=== PATIENT | female | born 1995 | race Caucasian/White ===

== ENCOUNTER 2017-07-09 09:37 | Outpatient (CLI) | payer OTHER ==
[2017-07-09 10:56] LABS: HGB - HEMOGLOBIN 11.9 g/dL (12.0-16.0); MEAN CORPUSCULAR HEMOGLOBIN 32.1 pg (27.0-31.0); MEAN CORPUSCULAR HGB CONC 35.9 g/dL (32.0-36.0); MEAN CORPUSCULAR VOLUME 89.4 fL (81.0-99.0); MEAN PLATELET VOLUME 6.2 fL (7.9-10.8); RED BLOOD COUNT 3.69 10^6/uL (4.20-5.40); RED CELL DISTRIBUTION WIDTH 12.3 % (12.0-15.0); WHITE BLOOD COUNT 9.9 x10^3/uL (4.8-10.8)
== END 2017-07-09 09:38 | disposition home or self-care (01) ==
LOC: LAB 09:37
PROVIDERS: ATTEND Registered Nurse
DX: Z34.82 Encounter for supervision of other normal pregnancy, second trimester (principal)
CPT/HCPCS: 36415; 82950; 86850

== ENCOUNTER 2017-09-12 17:06 | Observation (INO) | payer OTHER ==
[2017-09-12 17:48] LABS: BASOPHILS % (AUTO) 0.3 %; EOSINOPHILS % (AUTO) 0.2 %; HCT - HEMATOCRIT 32.6 % (37.0-47.0); HGB - HEMOGLOBIN 11.2 g/dL (12.0-16.0); LYMPHOCYTES # (AUTO) 1.8 10^3/uL (1.5-3.5); LYMPHOCYTES % (AUTO) 20.7 %; MEAN CORPUSCULAR HEMOGLOBIN 29.4 pg (27.0-31.0); MEAN CORPUSCULAR HGB CONC 34.3 g/dL (32.0-36.0); MEAN CORPUSCULAR VOLUME 85.8 fL (81.0-99.0); MEAN PLATELET VOLUME 7.2 fL (7.9-10.8); MONOCYTES # (AUTO) 0.6 10^3/uL (0.0-1.0); MONOCYTES % (AUTO) 7.4 %; NEUTROPHILS # (AUTO) 6.2 10^3/uL (1.5-6.6); NEUTROPHILS % (AUTO) 71.4 %; RED CELL DISTRIBUTION WIDTH 12.3 % (12.0-15.0); UNCORRECTED WHITE BLOOD COUNT 8.7 x10^3/uL; WHITE BLOOD COUNT 8.7 x10^3/uL (4.8-10.8)
[2017-09-12] MEDS ORDERED: BETAMETHASONE 30 MG/5 ML VIAL IM SCH (20:00)
[2017-09-12] MEDS ORDERED: ASPIRIN 325 MG TABLET PO SCH (20:00)
[2017-09-12] MEDS ORDERED: ASPIRIN CHEW 81 MG TABLET ONE (20:40)
--- NOTE | 2017-09-12 21:30 | PROVIDER PROGRESS NOTE ---
Subjective - Prog Note Date Prog Note Date: 09/12/17 Prog Note Time: 21:00 - Subjective Subjective: Eda Evans is a 22-year-old primigravida at 35w 2d who was evaluated by Dontrell Alvarez This afternoon and found to have an elevated blood pressure on 2 occasions in the clinic 160/90 and 168/90. She is no history of chronic hypertension and gestational hypertension was suspect.She had no headaches visual changes or right upper quadrant tenderness. Her baseline blood pressure at 24 weeks was 110/60Her blood pressures have been running normally over the last few weeks with an abrupt rise today. Initially, labor and delivery blood pressures were noted to be near normal 124/76. It was decided to do serial blood pressure measurements that showed a upward trend 147/86 and 138/71. Preeclampsia panel was drawn which was essentially normal. Patient was admitted overnight to begin urine protein collection and continue serial blood pressures measurements. Allergies: No known drug allergies Medications: vitamins with iron Objective - Vital Signs/Intake & Output Vital Signs: Vital Signs x48h Temp Pulse Resp BP BP Pulse Ox 09/12/17 20:49 138/71 H 09/12/17 20:48 147/86 H 09/12/17 19:01 136/70 H 09/12/17 18:45 124/76 09/12/17 18:15 123/71 09/12/17 18:01 86 18 135/73 H 100 09/12/17 17:45 124/78 09/12/17 17:32 18 131/74 H 100 09/12/17 17:16 130/91 H 09/12/17 17:10 98.8 F 103 H 18 147/85 H 99 - Lab Results Fish Bones: 09/12/17 17:35 Other Labs: Lab Results x24hrs 09/12/17 09/12/17 09/12/17 Range/Units 17:35 17:35 17:35 WBC 8.7 (4.8-10.8) x10^3/uL RBC 3.80 L (4.20-5.40) 10^6/uL Hgb 11.2 L (12.0-16.0) g/dL Hct 32.6 L (37.0-47.0) % MCV 85.8 (81.0-99.0) fL MCH 29.4 (27.0-31.0) pg MCHC 34.3 (32.0-36.0) g/dL RDW 12.3 (12.0-15.0) % Plt Count 234 (130-450) 10^3/uL MPV 7.2 L (7.9-10.8) fL Neut # 6.2 (1.5-6.6) 10^3/uL Lymph # 1.8 (1.5-3.5) 10^3/uL [place] # 0.6 (0.0-1.0) 10^3/uL Eos # 0.0 (0.0-0.7) 10^3/uL Baso # 0.0 (0.0-0.1) 10^3/uL Absolute Nucleated RBC 0.00 x10^3/uL Nucleated RBC % 0.0 /100WBC Uric Acid 5.0 (2.6-7.2) mg/dL AST 24 (10-42) IU/L Lactate Dehydrogenase 113 (91-225) IU/L Urine Creatinine mg/dL Ur Total Protein Timed mg/dL Protein/Creatinin Ratio 09/12/ Range/Units 17:20 WBC (4.8-10.8) x10^3/uL RBC (4.20-5.40) 10^6/uL Hgb (12.0-16.0) g/dL Hct (37.0-47.0) % MCV (81.0-99.0) fL MCH (27.0-31.0) pg MCHC (32.0-36.0) g/dL RDW (12.0-15.0) % Plt Count (130-450) 10^3/uL MPV (7.9-10.8) fL Neut # (1.5-6.6) 10^3/uL Lymph # (1.5-3.5) 10^3/uL [place] # (0.0-1.0) 10^3/uL Eos # (0.0-0.7) 10^3/uL Baso # (0.0-0.1) 10^3/uL Absolute Nucleated RBC x10^3/uL Nucleated RBC % /100WBC Uric Acid (2.6-7.2) mg/dL AST (10-42) IU/L Lactate Dehydrogenase (91-225) IU/L Urine Creatinine 44.5 mg/dL Ur Total Protein Timed < 6 mg/dL Protein/Creatinin Ratio Not Reportable Physical Exam - Physical Exam General: positive: No acute distress, Anxious, Alert, Other (Talking on cell phone) HEENT: positive: Atraumatic, EOMI, Dentition normal Neck: positive: Supple w/out meningeal sx, Thyroid normal Cardiac: positive: Regular Rate, Regular Rhythm Resipratory: positive: Clear to ausultation becca Abdomen: positive: Normal Bowel sounds, Other (Nontender No organomegaly) Female : positive: Other (Uterus appropriate size normal resting tone no tenderness fetus in vertex presentation) Extremities: positive: Normal ROM Skin: positive: Warm and dry Neurologic: positive: Alert and Oriented X 3, Normal Speech Assessment/Plan - Assessment/Plan Assessment: Mrs. Evans is a 22-year-old primigravida at 35 weeks gestation who had 2 Hypertensive pressures recorded in our office. Her hospital blood pressures seem higher than her baseline, but not severe. Uncertain if there is a upward trend indicating gestational hypertension or if the office blood pressures were an isolated event. No evidence of preeclampsia by clinical symptoms or lab results. Plan: Continue observation overnight and record serial blood pressure measurements. Blood pressures will be done every 2 hours while awake using standard protocol right arm sitting cuff at heart level, normal size cuff. In addition to automated cuff blood pressures every third blood pressure value will have a recheck by manual technique. Results will be reevaluated in the morning.
--- NOTE | 2017-09-12 21:45 | PROCEDURE REPORT ---
Hospitalist Procedure Note - Procedure Note Procedure Note: Addendum for earlier note Plan includes completion of betamethasone IM series and institution of mini dose aspirin daily
[2017-09-13] MEDS ORDERED: ACETAMINOPHEN 325 MG TABLET PO PRN (04:49)
[2017-09-13] MEDS ORDERED: ACETAMINOPHEN 500 MG TABLET PO PRN ×2 (05:02→05:12)
--- NOTE | 2017-09-13 08:44 | PROVIDER PROGRESS NOTE ---
Subjective - Prog Note Date Prog Note Date: 09/13/17 Prog Note Time: 08:34 - Subjective Pt reports feeling: Improved (Patient sitting in bed. Had a headache early this AM but much improved now. Received tylenol. JARRETT was behind her eyes and in her ears. Good FM. No nausea or vomiting No VB. No other overnight events.) Objective - Vital Signs/Intake & Output Vital Signs: Vital Signs x48h Temp Pulse Resp BP 09/13/17 04:38 126/82 H 09/13/17 02:23 97.9 F 126/76 09/13/17 02:21 76 18 133/75 H Intake & Output: Intake & Output 09/10/17 09/11/17 09/12/17 09/13/17 23:59 23:59 23:59 23:59 Intake Total 1050 740 Output Total 925 975 Balance 125 -235 - Objective General Appearance: positive: No acute distress Eyes Bilateral: positive: Normal inspection Abdomen: positive: Non-tender (Gravid) Neurologic/Psychiatric: positive: Oriented x3 - Lab Results Fish Bones: 09/12/17 17:35 Other Labs: Lab Results x24hrs 09/12/17 09/12/17 09/12/17 Range/Units 17:35 17:35 17:35 WBC 8.7 (4.8-10.8) x10^3/uL RBC 3.80 L (4.20-5.40) 10^6/uL Hgb 11.2 L (12.0-16.0) g/dL Hct 32.6 L (37.0-47.0) % MCV 85.8 (81.0-99.0) fL MCH 29.4 (27.0-31.0) pg MCHC 34.3 (32.0-36.0) g/dL RDW 12.3 (12.0-15.0) % Plt Count 234 (130-450) 10^3/uL MPV 7.2 L (7.9-10.8) fL Neut # 6.2 (1.5-6.6) 10^3/uL Lymph # 1.8 (1.5-3.5) 10^3/uL [place] # 0.6 (0.0-1.0) 10^3/uL Eos # 0.0 (0.0-0.7) 10^3/uL Baso # 0.0 (0.0-0.1) 10^3/uL Absolute Nucleated RBC 0.00 x10^3/uL Nucleated RBC % 0.0 /100WBC Uric Acid 5.0 (2.6-7.2) mg/dL AST 24 (10-42) IU/L Lactate Dehydrogenase 113 (91-225) IU/L Urine Creatinine mg/dL Ur Total Protein Timed mg/dL Protein/Creatinin Ratio 09/12/ Range/Units 17:20 WBC (4.8-10.8) x10^3/uL RBC (4.20-5.40) 10^6/uL Hgb (12.0-16.0) g/dL Hct (37.0-47.0) % MCV (81.0-99.0) fL MCH (27.0-31.0) pg MCHC (32.0-36.0) g/dL RDW (12.0-15.0) % Plt Count (130-450) 10^3/uL MPV (7.9-10.8) fL Neut # (1.5-6.6) 10^3/uL Lymph # (1.5-3.5) 10^3/uL [place] # (0.0-1.0) 10^3/uL Eos # (0.0-0.7) 10^3/uL Baso # (0.0-0.1) 10^3/uL Absolute Nucleated RBC x10^3/uL Nucleated RBC % /100WBC Uric Acid (2.6-7.2) mg/dL AST (10-42) IU/L Lactate Dehydrogenase (91-225) IU/L Urine Creatinine 44.5 mg/dL Ur Total Protein Timed < 6 mg/dL Protein/Creatinin Ratio Not Reportable Assessment/Plan - Problem List (1) Hypertension affecting in third trimester Impression: 22 yo with a 35w3d IUP. New onset HTN. Still unclear why the discrepancy between office and hospital BPs. Continue Qshift NST and frequent BP. Recheck Pre-eclampsia labs given JARRETT this AM OB U/S for growth and MISSAEL. Anticipate discharge to home tonight after completion of 24 hour urine collection and 2nd dose of betamethasone.
[2017-09-13 08:46] LABS: BASOPHILS % (AUTO) 0.2 %; HCT - HEMATOCRIT 33.4 % (37.0-47.0); HGB - HEMOGLOBIN 11.8 g/dL (12.0-16.0); LYMPHOCYTES # (AUTO) 1.4 10^3/uL (1.5-3.5); LYMPHOCYTES % (AUTO) 13.6 %; MEAN CORPUSCULAR HEMOGLOBIN 29.9 pg (27.0-31.0); MEAN CORPUSCULAR HGB CONC 35.3 g/dL (32.0-36.0); MEAN CORPUSCULAR VOLUME 84.8 fL (81.0-99.0); MEAN PLATELET VOLUME 7.4 fL (7.9-10.8); MONOCYTES # (AUTO) 0.3 10^3/uL (0.0-1.0); MONOCYTES % (AUTO) 2.8 %; NEUTROPHILS # (AUTO) 8.8 10^3/uL (1.5-6.6); NEUTROPHILS % (AUTO) 83.4 %; RED BLOOD COUNT 3.94 10^6/uL (4.20-5.40); RED CELL DISTRIBUTION WIDTH 12.3 % (12.0-15.0); UNCORRECTED WHITE BLOOD COUNT 10.5 x10^3/uL; WHITE BLOOD COUNT 10.5 x10^3/uL (4.8-10.8)
[2017-09-13 08:58] LABS: CREATININE 0.5 mg/dL (0.4-1.0)
[2017-09-13] MEDS ORDERED: ASPIRIN CHEW 81 MG TABLET PO SCH (10:00)
--- NOTE | 2017-09-13 16:58 | PROVIDER PROGRESS NOTE ---
Subjective - Prog Note Date Prog Note Date: 09/13/17 Prog Note Time: 16:56 Objective - Vital Signs/Intake & Output Vital Signs: Vital Signs x48h Temp Pulse Resp BP Pulse Ox 09/13/17 13:47 124/74 09/13/17 13:30 130/80 09/13/17 13:16 98.4 F 78 16 128/73 95 09/13/17 12:59 131/77 H 09/13/17 09:49 136/74 H 09/13/17 09:34 120/97 H 09/13/17 09:15 131/79 H 09/13/17 09:10 84 16 136/72 H 99 Intake & Output: Intake & Output 09/10/17 09/11/17 09/12/17 09/13/17 23:59 23:59 23:59 23:59 Intake Total 1050 1951 Output Total 925 1900 Balance 125 51 - Lab Results Fish Bones: 09/13/17 08:36 09/13/17 08:36 Other Labs: Lab Results x24hrs 09/13/17 09/13/17 09/13/17 Range/Units 08:36 08:36 08:36 WBC 10.5 (4.8-10.8) x10^3/uL RBC 3.94 L (4.20-5.40) 10^6/uL Hgb 11.8 L (12.0-16.0) g/dL Hct 33.4 L (37.0-47.0) % MCV 84.8 (81.0-99.0) fL MCH 29.9 (27.0-31.0) pg MCHC 35.3 (32.0-36.0) g/dL RDW 12.3 (12.0-15.0) % Plt Count 216 (130-450) 10^3/uL MPV 7.4 L (7.9-10.8) fL Neut # 8.8 H (1.5-6.6) 10^3/uL Lymph # 1.4 L (1.5-3.5) 10^3/uL [place] # 0.3 (0.0-1.0) 10^3/uL Eos # 0.0 (0.0-0.7) 10^3/uL Baso # 0.0 (0.0-0.1) 10^3/uL Absolute Nucleated RBC 0.00 x10^3/uL Nucleated RBC % 0.0 /100WBC Creatinine 0.5 (0.4-1.0) mg/dL Estimated GFR (MDRD) 152 (>89) Uric Acid (2.6-7.2) mg/dL AST 22 (10-42) IU/L Lactate Dehydrogenase 120 (91-225) IU/L Urine Creatinine mg/dL Ur Total Protein Timed mg/dL Protein/Creatinin Ratio 09/12/17 09/12/17 09/12/17 Range/Units 17:35 17:35 17:35 WBC 8.7 (4.8-10.8) x10^3/uL RBC 3.80 L (4.20-5.40) 10^6/uL Hgb 11.2 L (12.0-16.0) g/dL Hct 32.6 L (37.0-47.0) % MCV 85.8 (81.0-99.0) fL MCH 29.4 (27.0-31.0) pg MCHC 34.3 (32.0-36.0) g/dL RDW 12.3 (12.0-15.0) % Plt Count 234 (130-450) 10^3/uL MPV 7.2 L (7.9-10.8) fL Neut # 6.2 (1.5-6.6) 10^3/uL Lymph # 1.8 (1.5-3.5) 10^3/uL [place] # 0.6 (0.0-1.0) 10^3/uL Eos # 0.0 (0.0-0.7) 10^3/uL Baso # 0.0 (0.0-0.1) 10^3/uL Absolute Nucleated RBC 0.00 x10^3/uL Nucleated RBC % 0.0 /100WBC Creatinine (0.4-1.0) mg/dL Estimated GFR (MDRD) (>89) Uric Acid 5.0 (2.6-7.2) mg/dL AST 24 (10-42) IU/L Lactate Dehydrogenase 113 (91-225) IU/L Urine Creatinine mg/dL Ur Total Protein Timed mg/dL Protein/Creatinin Ratio 09/12/17 Range/Units 17:20 WBC (4.8-10.8) x10^3/uL RBC (4.20-5.40) 10^6/uL Hgb (12.0-16.0) g/dL Hct (37.0-47.0) % MCV (81.0-99.0) fL MCH (27.0-31.0) pg MCHC (32.0-36.0) g/dL RDW (12.0-15.0) % Plt Count (130-450) 10^3/uL MPV (7.9-10.8) fL Neut # (1.5-6.6) 10^3/uL Lymph # (1.5-3.5) 10^3/uL [place] # (0.0-1.0) 10^3/uL Eos # (0.0-0.7) 10^3/uL Baso # (0.0-0.1) 10^3/uL Absolute Nucleated RBC x10^3/uL Nucleated RBC % /100WBC Creatinine (0.4-1.0) mg/dL Estimated GFR (MDRD) (>89) Uric Acid (2.6-7.2) mg/dL AST (10-42) IU/L Lactate Dehydrogenase (91-225) IU/L Urine Creatinine 44.5 mg/dL Ur Total Protein Timed < 6 mg/dL Protein/Creatinin Ratio Not Reportable Assessment/Plan - Problem List (1) Hypertension affecting in third trimester Impression: 22 yo with a 35wk IUP Improved HTN Repeat labs WNL OB U/S with EFW 3228 gm, MISSAEL 15.1 cm Discharge to home tonight after 2nd dose of betamethasone and 24 urine collection for protein
[2017-09-13 19:39] VITALS: BP 113/58
--- NOTE | 2017-09-14 16:19 | Ultrasound Report ---
OB FOLLOWUP: 09/13/2017 CLINICAL INDICATION: Hypertension. TECHNIQUE: Real-time scanning was performed with patient portal representative static images obtained. LAST MENSTRUAL PERIOD 01/09/2017 Clinical Age 35 weeks 2 days US Age 37 weeks 2 days EFW [place] 3228 EFW% Hadlock -- Heart Rate 148 bpm EDC 10/16/2017 US EDC 10/02/2017 BPD [place] 36 weeks 5 days; Mean mm 91 HC [place] 37 weeks 1 day; Mean mm 327 AC [place] 38 weeks 2 days; Mean mm 344 FL [place] 36 weeks 2 days; Mean mm 71 Presentation cephalic Placental Location anterior Cervical Length -- Amniotic Fluid 15.1 FINDINGS: There is a single viable intrauterine gestation, in cephalic presentation. heart rate is 148 BPM. The placenta is anterior, without evidence of previa. Amniotic fluid volume is normal, with an MISSAEL of 15.1. By size, the fetus measures 37 weeks 2 days (35 weeks 2 days by LMP). Estimated weight by Hadlock method is 3228 grams. No free fluid or adnexal lesion is appreciated. IMPRESSION: SINGLE VIABLE INTRAUTERINE GESTATION, WITH SIZE IN KEEPING WITH LMP DATING. NORMAL MISSAEL. ESTIMATED WEIGHT OF 3228 GRAMS. MTDD
== END 2017-09-13 20:44 | disposition home or self-care (01) ==
LOC: WFO 17:06 → FBP 17:07 → WFO 19:12 → FBP 19:13
PROVIDERS: ADMIT Obstetrics & Gynecology; ATTEND Obstetrics & Gynecology
DX: O16.3 Unspecified maternal hypertension, third trimester (principal); Z36.85 Encounter for antenatal screening for Streptococcus B
CPT/HCPCS: 36415; 59025; 76816; 82565; 82570; 83615; 84156; 84450; 84550; 85025; 87797; 96372; 99213; A9270; G0378

== ENCOUNTER 2017-09-13 08:00 | Outpatient (CLI) | payer OTHER | END 2017-09-13 08:01 | disposition home or self-care (01) | LOC: LAB.R 08:00 | PROVIDERS: ATTEND Registered Nurse | DX: Z36.85 Encounter for antenatal screening for Streptococcus B (principal) | CPT/HCPCS: 87797 ==

== ENCOUNTER 2017-09-15 12:59 | Outpatient (CLI) | payer OTHER ==
[2017-09-15 13:17] VITALS: BP 122/82
== END 2017-09-15 13:35 | disposition home or self-care (01) ==
LOC: WFO 12:59 → FBP 13:01 → WFO 13:35
PROVIDERS: ATTEND Obstetrics & Gynecology
DX: O13.3 Gestational [pregnancy-induced] hypertension without significant proteinuria, third trimester (principal); Z3A.35 35 weeks gestation of pregnancy
CPT/HCPCS: 59025

== ENCOUNTER 2017-09-19 13:06 | Outpatient (CLI) | payer OTHER ==
[2017-09-19 13:16] VITALS: BP 128/76
== END 2017-09-19 13:40 | disposition home or self-care (01) ==
LOC: WFO 13:06 → FBP 13:08 → WFO 13:40
PROVIDERS: ATTEND Obstetrics & Gynecology
DX: O13.3 Gestational [pregnancy-induced] hypertension without significant proteinuria, third trimester (principal); Z3A.36 36 weeks gestation of pregnancy
CPT/HCPCS: 59025

== ENCOUNTER 2017-09-21 11:09 | Outpatient (CLI) | payer OTHER ==
[2017-09-21 11:54] VITALS: BP 127/82
== END 2017-09-21 11:59 | disposition home or self-care (01) ==
LOC: WFO 11:09 → FBP 11:10 → WFO 11:59
PROVIDERS: ATTEND Obstetrics & Gynecology
DX: O10.913 Unspecified pre-existing hypertension complicating pregnancy, third trimester (principal); Z3A.36 36 weeks gestation of pregnancy
CPT/HCPCS: 59025

== ENCOUNTER 2017-09-24 18:00 | Inpatient (IN) | payer OTHER ==
[2017-09-24] MEDS ORDERED: ONDANSETRON 4 MG/2 ML VIAL IVP PRN (18:48)
[2017-09-24] MEDS ORDERED: DINOPROSTONE 10 MG SUPP VG SCH (18:48)
[2017-09-24] MEDS ORDERED: PENICILLIN G POTASSIUM 5,000,000 UNIT in SODIUM CHLORIDE 0.9% MINIBAG 100 ML IV SCH ×2 (18:48→22:00)
--- NOTE | 2017-09-24 18:48 | PROVIDER PROGRESS NOTE ---
Labor Progress Note - Labor Progress Note Labor Progress Note/Additional Text: ID: 22 yo with a 36w6d IUP with an EDC of 10/16/2017, established by a 7 week ultrasound. Unsure LMP of 01/23/2017. HPI: This is a patient of [facility] who presents today for a scheduled induction of labor. She was diagnosed with severe hypertension at 35w1d with office BPs of 160/90 and 168/90. She was sent to Labor and Delivery, and given a course of Beta-methasone. Kimberly was monitored overnight where her blood pressures spontaneously improved. Pre-eclampsia work up was negative at that time. 2016 PLT 216k, creatinine 0.5, uric acid 5.0, AST 22, LDH 120. Twenty-four hour urine collection revealed <6 mg/kL of protein. A growth ultrasound showed an EFW of 3228 gm and MISSAEL of 15.1 cm. Fetus was cephalic with an anterior placenta. Kimberly was started on labetalol 100 mg BID and had NST every 2 3 days. Her BPs improved to 140/80s at its worst. Given Brent hypertension that is controlled with medication, she was recommended to proceed to an induction of labor at 37 weeks gestation. Kimberly has not had any pre-eclampsia symptoms such as right upper quadrant pain, visual changes or headaches. She has reported that the baby is moving well and denies any vaginal bleeding or loss of fluid. Kimberly is a transfer of care from [facility] in [place]. She had 4 visits there on 04/02/2017 at 9w6d, 113/62; 04/30/2017 at 15w6d, 120/64; at 17w6d for colposcopy; and 05/29/2017 at 20w, 114/53. [facility] 24w6d for midwifery care. Kimberly was seen for routine visits and did not have anything of significance until 35 weeks gestation. PMH: Reactive airway disease PSH: None ALL: NKDA MEDS: Labetalol 100 mg BID, ProAir HFA 90 mcg/attenuation, vitamins SOC: She denies tobacco use, alcohol use or illicit drug use. Her pharmacy of choice is [facility] in [facility]. Alpesh is her who is employed by the [employer]. The gender of this baby is unknown. Kimberly plans to breast feed and is open to an epidural. [facility] is her pediatric group of alexsandra. POBH: Current. She desires the Nexplanon for control. PGYN: 04/02/2017 pap smear showing LGSIL and positive HR HPV. She had a colposcopy 05/14/2017 at 17wks gestation remarkable for acetowhite epithelium. No biopsy was performed. FH: No female carcinoma ROS: Negative unless otherwise noted PHYSICAL EXAM: 54, 187 lbs General: Well developed, well-nourished female in no apparent distress. She is alert and oriented x 3 HEENT: Within normal limits Cardiovascular: Rate is regular Pulmonary: Lungs clear to auscultation bilaterally Abdomen: Gravid, nontender labs: O positive, antibody screen negative, Hepatitis B negative, HIV negative, GC and CT both negative, rubella immune, declined CF, AFP Tetra negative. 04/02/2017 pap LGSIL with positive HR HPV. 02/27/2017 ultrasound established EDC of 10/16/2017 at 7w0d and CRL of 0.97 cm. 05/29/2017 anatomical survey was consistent with dates and within normal limits. Posterior placenta with a 3 vessel umbilical cord. 07/09/2017 1 hr GTT 110 with WBC 9.9, H/ H 11.9/33.0, PLT 209K. GBS positive. ASSESSMENT: 1. 22 yo with a 36w6d IUP. 2. Controlled gestational hypertension. 3. S/p two doses of Beta-methasone at 35wks. 4. GBS positive 5. Cervix remote from delivery PLAN: 1. Admit 2. Pre-eclampsia labs with a type and hold 3. Continue labetalol 100 mg po BID with PRN IV labetalol 4. Penicillin for GBS 5. Cervidil ripening overnight with conversion to Pitocin when cervix is more favorable
[2017-09-24] MEDS ORDERED: diphenhydrAMINE 25 MG CAPSULE PO PRN (18:50)
[2017-09-24] MEDS ORDERED: ZOLPIDEM 5 MG TABLET PO PRN (18:50)
[2017-09-24 19:08] LABS: BASOPHILS % (AUTO) 0.3 %; EOSINOPHILS % (AUTO) 0.1 %; HCT - HEMATOCRIT 32.4 % (37.0-47.0); HGB - HEMOGLOBIN 11.1 g/dL (12.0-16.0); LYMPHOCYTES % (AUTO) 20.9 %; MEAN CORPUSCULAR HEMOGLOBIN 29.3 pg (27.0-31.0); MEAN CORPUSCULAR HGB CONC 34.1 g/dL (32.0-36.0); MEAN PLATELET VOLUME 7.4 fL (7.9-10.8); MONOCYTES # (AUTO) 0.4 10^3/uL (0.0-1.0); MONOCYTES % (AUTO) 4.7 %; NEUTROPHILS # (AUTO) 6.9 10^3/uL (1.5-6.6); RED BLOOD COUNT 3.77 10^6/uL (4.20-5.40); UNCORRECTED WHITE BLOOD COUNT 9.4 x10^3/uL; WHITE BLOOD COUNT 9.4 x10^3/uL (4.8-10.8)
--- NOTE | 2017-09-24 19:14 | PROVIDER PROGRESS NOTE ---
Labor Progress Note - Uterine Monitoring Uterine Monitoring Mode: positive: External toco Contraction Frequency (min/apart): Irregular Contraction Intensity: positive: Mild Uterine Resting Tone: positive: Soft - Monitoring Monitor Mode: positive: External ultrasound Heart Rate Baseline: 140's Heart Rate Variability: positive: Moderate (6-25 bmp) Accelerations: positive: Present, 15x15 Decelerations: positive: None Strip Review: positive: Category I - Vaginal Exam Dilation (in cm): 0 Effacement (%): 50 Station: -2 Cervical Position: Midposition - Labor Progress Note Labor Progress Note/Additional Text: Will start with cervidil overnight
[2017-09-24 19:27] LABS: CREATININE 0.5 mg/dL (0.4-1.0); URIC ACID 6.1 mg/dL (2.6-7.2)
[2017-09-24] MEDS: LABETALOL 100 MG TABLET PO SCH (20:08)
[2017-09-24] MEDS: SODIUM CHLORIDE FLUSH 0.9% 10 ML SYRINGE IVP PRN (20:23)
[2017-09-24 21:22] LABS: BILIRUBIN,URINE NEGATIVE (NEGATIVE)
[2017-09-24 21:24] LABS: UA CHARGE (STRIP ONLY) YES; UR CULTURE IF IND NOT INDICATED
[2017-09-24] MEDS: ACETAMINOPHEN 325 MG TABLET PO PRN (21:34)
[2017-09-24] MEDS ORDERED: PENICILLIN G POTASSIUM 2,500,000 UNIT in SODIUM CHLORIDE 0.9% 100ML 100 ML IV SCH (23:00)
--- NOTE | 2017-09-25 04:07 | PROVIDER PROGRESS NOTE ---
Labor Progress Note - Uterine Monitoring Uterine Monitoring Mode: positive: External toco Contraction Intensity: positive: Irritability Uterine Resting Tone: positive: Soft - Monitoring Monitor Mode: positive: External ultrasound Heart Rate Baseline: 150-160's Heart Rate Variability: positive: Moderate (6-25 bmp) Accelerations: positive: Present, 15x15 Decelerations: positive: None Strip Review: positive: Category I - Labor Progress Note Labor Progress Note/Additional Text: 22 yo with a 37w0d IUP Gestational HTN, improved control with labetalol 100 mg BID S/p Cervidil at 8:30 PM Labs WNL Labs, EKG, Meds, Allergy - Lab Results Fish Bones: 09/24/17 18:54 09/24/17 18:54 Other Lab Results: Lab Results x24hrs 09/24/17 09/24/17 09/24/17 Range/Units 20:45 18:54 18:54 WBC (4.8-10.8) x10^3/uL RBC (4.20-5.40) 10^6/uL Hgb (12.0-16.0) g/dL Hct (37.0-47.0) % MCV (81.0-99.0) fL MCH (27.0-31.0) pg MCHC (32.0-36.0) g/dL RDW (12.0-15.0) % Plt Count (130-450) 10^3/uL MPV (7.9-10.8) fL Neut # (1.5-6.6) 10^3/uL Lymph # (1.5-3.5) 10^3/uL [place] # (0.0-1.0) 10^3/uL Eos # (0.0-0.7) 10^3/uL Baso # (0.0-0.1) 10^3/uL Absolute Nucleated RBC x10^3/uL Nucleated RBC % /100WBC Creatinine 0.5 (0.4-1.0) mg/dL Estimated GFR (MDRD) 152 (>89) Uric Acid 6.1 (2.6-7.2) mg/dL AST 23 (10-42) IU/L Lactate Dehydrogenase 127 (91-225) IU/L Urine Color YELLOW Urine Clarity CLEAR (CLEAR) Urine pH 6.0 (5.0-7.5) PH Ur Specific [place] 1.020 (1.002-1.030) Urine Protein NEGATIVE (NEGATIVE) mg/dL Urine Glucose (UA) NEGATIVE (NEGATIVE) mg/dL Urine Ketones NEGATIVE (NEGATIVE) mg/dL Urine Occult Blood [place]ACE[place] (NEGATIVE) Urine Nitrite NEGATIVE (NEGATIVE) Urine Bilirubin NEGATIVE (NEGATIVE) Urine Urobilinogen 0.2 (NORMAL) (NORMAL) E.U./dL Ur Leukocyte Esterase NEGATIVE (NEGATIVE) Ur Microscopic Review NOT INDICATED Urine Culture Comments NOT INDICATED Blood Type Antibody Screen 09/24/17 09/24/17 Range/Units 18:54 18:54 WBC 9.4 (4.8-10.8) x10^3/uL RBC 3.77 L (4.20-5.40) 10^6/uL Hgb 11.1 L (12.0-16.0) g/dL Hct 32.4 L (37.0-47.0) % MCV 86.0 (81.0-99.0) fL MCH 29.3 (27.0-31.0) pg MCHC 34.1 (32.0-36.0) g/dL RDW 13.0 (12.0-15.0) % Plt Count 221 (130-450) 10^3/uL MPV 7.4 L (7.9-10.8) fL Neut # 6.9 H (1.5-6.6) 10^3/uL Lymph # 2.0 (1.5-3.5) 10^3/uL [place] # 0.4 (0.0-1.0) 10^3/uL Eos # 0.0 (0.0-0.7) 10^3/uL Baso # 0.0 (0.0-0.1) 10^3/uL Absolute Nucleated RBC 0.00 x10^3/uL Nucleated RBC % 0.0 /100WBC Creatinine (0.4-1.0) mg/dL Estimated GFR (MDRD) (>89) Uric Acid (2.6-7.2) mg/dL AST (10-42) IU/L Lactate Dehydrogenase (91-225) IU/L Urine Color Urine Clarity (CLEAR) Urine pH (5.0-7.5) PH Ur Specific [place] (1.002-1.030) Urine Protein (NEGATIVE) mg/dL Urine Glucose (UA) (NEGATIVE) mg/dL Urine Ketones (NEGATIVE) mg/dL Urine Occult Blood (NEGATIVE) Urine Nitrite (NEGATIVE) Urine Bilirubin (NEGATIVE) Urine Urobilinogen (NORMAL) E.U./dL Ur Leukocyte Esterase (NEGATIVE) Ur Microscopic Review Urine Culture Comments Blood Type O POSITIVE Antibody Screen NEGATIVE - Allergy Allergy: Allergies Allergy/AdvReac Type Severity Reaction Status Date / Time No Known Allergies Allergy Unknown Verified 09/13/17 05:07
[2017-09-25] MEDS: LACTATED RINGERS 1,000 ML IV SCH ×3 (06:29→22:44)
[2017-09-25] MEDS: SODIUM CHLORIDE FLUSH 0.9% 10 ML SYRINGE IVP SCH (06:29)
[2017-09-25] MEDS: LABETALOL 100 MG TABLET PO SCH ×2 (08:20→20:57)
[2017-09-25] MEDS: miSOPROStol 100 MCG TABLET BC SCH ×2 (10:43→15:08)
[2017-09-25] MEDS: ACETAMINOPHEN 325 MG TABLET PO PRN (12:00)
--- NOTE | 2017-09-25 12:34 | PROVIDER PROGRESS NOTE ---
Labor Progress Note - Uterine Monitoring Uterine Monitoring Mode: positive: External toco Uterine Resting Tone: positive: Soft - Monitoring Monitor Mode: positive: External ultrasound Heart Rate Variability: positive: Moderate (6-25 bmp) Accelerations: positive: Present, 15x15 Decelerations: positive: None Strip Review: positive: Category I - Labor Progress Note Labor Progress Note/Additional Text: 22 yo with a 37w0d IUP Gestational hypertension, controlled. Continue labetalol 100 mg BID Reassuring and maternal statuses S/p 1 dose of cervidil and 1 dose of cytotec (50 mcg buccal) Continue cytotec Q 4 hours. Likely to use cervidil again overnight
[2017-09-25] MEDS ORDERED: BISACODYL 10 MG SUPP PR PRN (14:06)
[2017-09-25] MEDS ORDERED: MAGNESIUM HYDROXIDE 2,400 MG/30 ML UDC PO PRN (14:22)
[2017-09-25] MEDS ORDERED: PENICILLIN G POTASSIUM 5,000,000 UNIT in SODIUM CHLORIDE 0.9% MINIBAG 100 ML IV SCH (17:00)
--- NOTE | 2017-09-25 17:31 | PROVIDER PROGRESS NOTE ---
Labor Progress Note - Uterine Monitoring Uterine Monitoring Mode: positive: External toco Contraction Frequency (min/apart): Q2-3 Contraction Intensity: positive: Moderate to strong Uterine Resting Tone: positive: Soft - Monitoring Monitor Mode: positive: External ultrasound Heart Rate Baseline: 140's Heart Rate Variability: positive: Moderate (6-25 bmp) Accelerations: positive: Present, 15x15 Decelerations: positive: None Strip Review: positive: Category I - Vaginal Exam Dilation (in cm): 1 Effacement (%): 100 Station: -2 Cervical Position: Anterior (LAZARO Chairez's exam) - Labor Progress Note Labor Progress Note/Additional Text: 22 yo with a 37w0d IUP Gestational HTN, controlled Improved cervical effacement after 1 dose of cervidil and 1 dose of cytotec Start PCN for GBS prophylaxis Expect
[2017-09-25] MEDS: fentaNYL 100 MCG/2 ML VIAL IVP PRN ×4 (18:39→21:16)
--- NOTE | 2017-09-25 19:10 | PROVIDER PROGRESS NOTE ---
Labor Progress Note - Uterine Monitoring Uterine Monitoring Mode: positive: External toco Contraction Frequency (min/apart): Q2-4 Contraction Intensity: positive: Strong Uterine Resting Tone: positive: Soft - Monitoring Monitor Mode: positive: External ultrasound Heart Rate Variability: positive: Moderate (6-25 bmp) Accelerations: positive: Present, 10x10 (=/32 wks) Decelerations: positive: Early Strip Review: positive: Category II - Vaginal Exam Dilation (in cm): 4 Effacement (%): 100 Station: -1 - Labor Progress Note Labor Progress Note/Additional Text: 22 yo with a 37w0d IUP Controlled gestational HTN GBS positive-- receiving 1st dose of PCN IV Progressing cervical change per RN exam Epidural PRN Expect (tactical debriefer in the room)
[2017-09-25] MEDS ORDERED: CALCIUM CARBONATE CHEW 500 MG TABLET PO PRN (19:46)
[2017-09-25] MEDS: PENICILLIN G POTASSIUM 2,500,000 UNIT in SODIUM CHLORIDE 0.9% 100ML 100 ML IV SCH (20:57)
[2017-09-25] MEDS ORDERED: fent/BUPIV 2 MCG/0.125% 250 ML EP ONE (21:53)
[2017-09-25] MEDS ORDERED: BUPIVACAINE 0.5% PF 10 ML VIAL IM ONE (22:48)
--- NOTE | 2017-09-25 23:26 | PROVIDER PROGRESS NOTE ---
Labor Progress Note - Uterine Monitoring Uterine Monitoring Mode: positive: External toco Contraction Frequency (min/apart): Q3-4 Contraction Intensity: positive: Moderate to strong Uterine Resting Tone: positive: Soft - Monitoring Monitor Mode: positive: External ultrasound Heart Rate Baseline: 140's Heart Rate Variability: positive: Moderate (6-25 bmp) Accelerations: positive: Present, 15x15 Decelerations: positive: Early Strip Review: positive: Category I - Vaginal Exam Dilation (in cm): 8 Station: -1 (Per Joy RN exam. Bedside U/S reveals VTX presentation) - Labor Progress Note Labor Progress Note/Additional Text: 22 yo with a 37w0d IUP Controlled gestational HTN Active labor GBS positive Patient received epidural and is resting Expect
[2017-09-26] MEDS: PENICILLIN G POTASSIUM 2,500,000 UNIT in SODIUM CHLORIDE 0.9% 100ML 100 ML IV SCH (01:18)
--- NOTE | 2017-09-26 03:14 | DELIVERY NOTE ---
Delivery Note - Labor Labor: positive: Other - Infant Delivery Method Delivery Method: positive: Spontaneous vaginal delivery - Cervical Ripening Method Cervical Ripening Method: positive: Misoprostil, Prostaglandin E2 - Presentation Presentation: positive: Vertex, JAYLEN - left occiput anterior - Nuchal Cord Nuchal Cord: positive: Present (x2), Reduced - Anesthetic Anesthetic Type: Anesthetic: positive: Lidocaine - 0.5% plain Volume: positive: Other (15) - Amniotic Fluid Description Amniotic Fluid Description: positive: Clear - Episiotomy Type Episiotomy Type: positive: None - Laceration Laceration: positive: 2nd degree, Perineal - Suture Suture Type: positive: Vicryl Suture Size: positive: 4-0 - Delivery Outcome Delivery Outcome: positive: Livebirth - [place]: positive: Suctioned, Stimulated, Warmed, [place] used, Warmer used [place] sex: positive: Female : 5 : 7 - Cord Cord: positive: 3 vessels - Placenta Placenta: positive: Intact, Spontaneous - Estimated Blood Loss Estimated Blood Loss (in cc): 250 - Delivery Comments (Free Text/Narrative) Delivery Comments (Free Text/Narrative): 22 yo with a 36w6d IUP was admitted 09/25/2017 for cervical ripening. Controlled gestational HTN controlled on labetalol 100 mg BID. S/p Beta- methasone at 35 weeks gestation. She received cervidil x 1 and cytotec 50 mcg x 1. Epidural for pain control by Dr. Mckenzie. 09/26/2017 at 37w0d of a viable female infant, "Amy Bliss." Nuchal cord x 2 reduced easily. Placenta delivered spontaneously, intact, 3VC; to pathology. Cord gases obtained. Baby did not want to cry despite stimulation. Good HR, color. Supplemental O2 by mask given. Apgars 5/7/9. Weight 7 lbs 5.1 oz. 2nd degree medial vulvar laceration repaired with 4-0 vicryl. EBL 250 mL. No complications.
[2017-09-26] MEDS ORDERED: OXYTOCIN/SODIUM CHLORIDE 250 ML IV ONE ×2 (03:15→15:28)
[2017-09-26] MEDS ORDERED: WITCH HAZEL/GLYCERIN 1 EACH MED..PAD TOP PRN (03:15)
[2017-09-26] MEDS: SODIUM CHLORIDE FLUSH 0.9% 10 ML SYRINGE IVP SCH ×6 (03:23→19:59)
[2017-09-26] MEDS: miSOPROStol 100 MCG TABLET BC SCH ×4 (03:24→19:58)
[2017-09-26] MEDS: SODIUM CHLORIDE FLUSH 0.9% 10 ML SYRINGE IVP PRN (04:36)
[2017-09-26] MEDS: LACTATED RINGERS 1,000 ML IV SCH ×2 (04:55→15:41)
[2017-09-26] MEDS: SIMETHICONE CHEW 80 MG TABLET PO SCH ×3 (06:34→23:50)
[2017-09-26] MEDS ORDERED: LIDOCAINE-MPF 1% 2 ML AMP SUBQ ONE (07:45)
[2017-09-26] MEDS: ACETAMINOPHEN 325 MG TABLET PO PRN (08:23)
[2017-09-26] MEDS: CELECOXIB 100 MG CAPSULE PO SCH ×2 (08:23→20:23)
[2017-09-26] MEDS: DOCUSATE SODIUM 100 MG CAPSULE PO SCH ×2 (08:24→20:24)
[2017-09-26] MEDS: HYDROCORTISONE/PRAMOXINE 10 GM PR PRN (08:28)
[2017-09-26] MEDS: LABETALOL 100 MG TABLET PO SCH ×2 (10:06→20:24)
[2017-09-26] MEDS: HYDROcod/ACETAM 5/325 MG TABLET PO PRN ×3 (11:50→20:24)
[2017-09-26] MEDS ORDERED: LIDOCAINE-MPF 1% 30 ML VIAL SUBQ ONE (15:28)
[2017-09-27] MEDS: SIMETHICONE CHEW 80 MG TABLET PO SCH ×2 (06:39→14:49)
[2017-09-27] MEDS: DOCUSATE SODIUM 100 MG CAPSULE PO SCH ×2 (08:34→20:20)
[2017-09-27] MEDS: CELECOXIB 100 MG CAPSULE PO SCH ×2 (08:34→20:19)
--- NOTE | 2017-09-27 08:34 | PROVIDER PROGRESS NOTE ---
Subjective - Prog Note Date Prog Note Date: 09/27/17 Prog Note Time: 08:31 - Subjective Pt reports feeling: Improved Subjective: Patient sitting in bed eating breakfast. Baby in bassinet at bedside. Alpesh in visitor's bed. States she is feeling better though tired. Baby Amy cluster feeding. Pain tolerable, taking vicodin. Ambulating without difficulty and urinating well. Lochia decreasing. Dr. Landaverde wants to watch the baby a little more and anticipates discharge tomorrow AM. Objective - Vital Signs/Intake & Output Reviewed Vital Signs: Yes Vital Signs: Vital Signs x48h Temp Pulse Resp BP 09/27/17 03:05 97.9 F 75 16 125/68 Intake & Output: Intake & Output 09/24/17 09/25/17 09/26/17 09/27/17 23:59 23:59 23:59 23:59 Intake Total 500 2490 623.333 Output Total 1400 Balance 500 1090 623.333 - Objective General Appearance: positive: No acute distress Eyes Bilateral: positive: Normal inspection Abdomen: positive: Non-tender (Firm fundus) Neurologic/Psychiatric: positive: Oriented x3, Mood/affect nml - Lab Results Fish Bones: 09/24/17 18:54 09/24/17 18:54 Assessment/Plan - Problem List (1) Normal vaginal delivery Impression: 22 yo S/p , PPD #1 Normal recovery Routine care Anticipate discharge to home tomorrow (2) Hypertension affecting in third trimester Impression: Normotensive on labetalol 100 mg BID Plan to continue after discharge to home Patient to return to the clinic next week for BP check. Consider stopping labetalol at that time if BPs good.
[2017-09-27] MEDS: HYDROcod/ACETAM 5/325 MG TABLET PO PRN ×3 (08:36→20:19)
[2017-09-27] MEDS: LABETALOL 100 MG TABLET PO SCH ×2 (08:36→20:19)
[2017-09-27] MEDS: HYDROCORTISONE/PRAMOXINE 10 GM PR PRN (14:48)
[2017-09-28] MEDS: SIMETHICONE CHEW 80 MG TABLET PO SCH ×2 (01:38→08:59)
--- NOTE | 2017-09-28 08:40 | PROVIDER PROGRESS NOTE ---
Subjective - Prog Note Date Prog Note Date: 09/28/17 Prog Note Time: 08:37 - Subjective Pt reports feeling: Improved Subjective: Patient doing well, feeling better. Baby latching well. Decreasing lochia. Ambulating and tolerating a regular diet. Urinating without difficulty. Desires to go home. Objective - Vital Signs/Intake & Output Vital Signs: Vital Signs x48h Temp Pulse Resp BP Pulse Ox 09/28/17 07:37 98.2 F 74 12 135/88 H 98 09/28/17 01:34 98.1 F 72 18 136/78 H Intake & Output: Intake & Output 09/25/17 09/26/17 09/27/17 09/28/17 23:59 23:59 23:59 23:59 Intake Total 2490 623.333 Output Total 1400 Balance 1090 623.333 - Objective Eyes Bilateral: positive: Normal inspection Abdomen: positive: Non-tender Neurologic/Psychiatric: positive: Oriented x3 - Lab Results Fish Bones: 09/24/17 18:54 09/24/17 18:54 Assessment/Plan - Problem List (1) Normal vaginal delivery Impression: 22 yo S/p 09/26/2017, PPD #2 Normal recovery Discharge to home Follow up with routine visit at 6 weeks Call for worsening fevers, chills, abdominal pain or vaginal bleeding Rx sent to [facility] for colace, ibuprofen, tylenol. Handwritten Rx for vicodin. (2) Hypertension affecting in third trimester Impression: Improving gestational HTN Continue labetalol 100 mg BID Return to clinic next week for BP check. Likely to discontinue labetalol at that time. Discharge Plan Disposition: 01 Home, Self Care Condition: Good Diet: Regular Activity Restrictions: Activity as Tolerated Shower Restrictions: No Driving Restrictions: Yes (Do no drive after taking vicodin) Weight Bearing: Full Weight No Smoking: If you smoke, Please STOP! Call for help.
[2017-09-28] MEDS: CELECOXIB 100 MG CAPSULE PO SCH (08:58)
[2017-09-28] MEDS: DOCUSATE SODIUM 100 MG CAPSULE PO SCH (08:58)
[2017-09-28] MEDS: LABETALOL 100 MG TABLET PO SCH (08:58)
[2017-09-28] MEDS: HYDROcod/ACETAM 5/325 MG TABLET PO PRN (11:09)
--- NOTE | 2017-09-28 12:34 | DISCHARGE SUMMARY ---
DATE OF ADMISSION: 09/25/2017 DATE OF DISCHARGE: 09/28/2017 DIAGNOSES ON ADMISSION 1. A 22-year-old G1, P0 with a 36 and 6/7 week intrauterine . 2. Controlled gestational hypertension. 3. Cervix remote from delivery. 4. Group B streptococcus positive. DIAGNOSES ON DISCHARGE: 1. A 22-year-old, G1, P1-0-0-1, status post spontaneous vaginal delivery on . 2. Normal recovery. 3. Controlled gestational hypertension. BRIEF HISTORY: The patient is a patient of [facility] who presented on 09/24/2017 for an induction of labor. The patient had new onset of gestational hypertension at 35 weeks' gestation. She was given a series of betamethasone, at that time was started on labetalol. Her blood pressures were controlled at that time. Workup for preeclampsia was negative. The patient was admitted on 09/24/2017 at 36 weeks 6 days for cervical ripening. She received 1 dose of Cervidil overnight and then 1 dose of Cytotec buccally the next day. The contractions were significant enough that she progressed to completion of dilation and effacement. She did receive an epidural by the anesthesiologist for pain control. The patient also received at least 3 doses of penicillin for GBS prophylaxis. Her blood pressures were well controlled on her labetalol 100 mg 1 tab p.o. b.i.d. The patient spontaneously delivered a viable female infant named Amy. Amy did have some difficulty transitioning. She received stimulation and blow-by after delivery. Apgars were 5, 7 and 9. The patient sustained a second degree midline laceration that was repaired with 4-0 Vicryl. EBL was 250 mL. There were no complications. The patient's course has been unremarkable. She has been ambulating and tolerating a regular diet. The patient is urinating without difficulty and her lochia is decreasing. Her pain is controlled with [id number] Tylenol and Celebrex. She is taking Vicodin as needed. Her blood pressure continues to be controlled with labetalol 100 mg 1 tab p.o. b.i.d. The patient will be discharged to home on day #2, 09/28/2017. Prescriptions for ibuprofen 800 mg, Tylenol 500 mg, and Colace have already been faxed to [facility] in [place], [place], for her care. A handwritten prescription for Vicodin is also available for the patient. The patient is to see me next week for a blood pressure check as she will continue her labetalol 100 mg 1 tab p.o. b.i.d. Will consider stopping her labetalol at that time. The patient is to call should she have any worsening fevers, chills, abdominal pain or vaginal bleeding. TD: 09/28/2017 10:45 MTDPrasanth
[2017-09-28 12:41] VITALS: BP 143/87
--- NOTE | 2017-09-28 13:35 | Labor Flowsheet ---
Labor Flowsheet Datetime Report Generated by CPN: 09/28/2017 13:35 Datetime: 09/28/2017 12:40 VITAL SIGNS NBP Sys/Inga/Mean (mmHg): 143 : 87 : 100 Pulse: 75 LaborFlag: Labor Datetime: 09/28/2017 07:39 SpO2 (%): 99 Datetime: 09/26/2017 02:17 UTERINE ACTIVITY Monitor Mode: External Frequency (min): 1.5-3 Quality: Strong Duration (sec): Pushing Pattern: Normal: <= 5 Contractions in 10 Minutes Resting Tone (Palpate): Relaxed Contraction Comments: Continuous monitoring of strip ASSESSMENT A Monitor Mode: Telemetry Variability: Moderate 6-25 bpm Decelerations: Late Category: Category II Comments: Indeterminate baseline Datetime: 09/26/2017 02:03 Monitor Interventions for UA: [place] Adjusted Datetime: 09/26/2017 02:00 FHR Baseline Rate : 150 Accelerations: None Oxygen Method: Room Air COMMUNICATION Communication: Provider at Bedside Provider Notified (Name): Dr. Marcus Datetime: 09/26/2017 01:55 Temperature (C): 37.4 Temperature Route: Oral Datetime: 09/26/2017 01:39 Pushing Progress: Descent with Pushing Datetime: 09/26/2017 01:34 Patient Care Comments: Emesis Datetime: 09/26/2017 01:32 STAGE 2 Pushing: Urge to Push Pushing Position: Pushing with Contractions; Pushing Lithotomy Datetime: 09/26/2017 01:30 Monitor Interventions for FHR: Ultrasound Adjusted Datetime: 09/26/2017 01:28 I/O Interventions: Straight Cath (ml) @ 300 Datetime: 09/26/2017 01:22 VAGINAL EXAM Dilatation (cm): 10.0 Effacement (%): 100 Station: 0 Exam by: T Hmuberto, RN and A Jacinto, RN Datetime: 09/26/2017 01:20 Patient Position/Activity: Supine Datetime: 09/26/2017 01:00 Anesthesia Level Check: T10- Umbilicus Datetime: 09/26/2017 00:36 PAIN Pain Scale: 5 Pain Type: Pressure Pain Location: Perineum Pain Coping: Talking Through Contractions; Breathing Through Contractions Pain Assessment Comments: Patient states pain is tolerable Datetime: 09/26/2017 00:14 Respirations: 17 Datetime: 09/25/2017 23:21 Pain Presence: Intermittent Datetime: 09/25/2017 23:18 Procedures: Bedside Ultrasound Done Datetime: 09/25/2017 23:03 Communication Comments: Request confirmation of presentation Datetime: 09/25/2017 23:00 Membrane Status: Ruptured Membranes Rupture Method: Spontaneous Amniotic Fluid Color: Clear Amniotic Fluid Amount: Small Amniotic Fluid Odor: Normal Nitrazine: Positive Datetime: 09/25/2017 22:57 Stage 2 Comments: Discontinued trial pushing; cervix felt Datetime: 09/25/2017 22:45 Epidural Procedure Other: Pump Started Datetime: 09/25/2017 22:38 Anesthesia Comments: Bolus Datetime: 09/25/2017 21:37 Epidural Procedure: Loading Dose Datetime: 09/25/2017 21:19 Epidural Positioning: Sitting Datetime: 09/25/2017 21:18 PROCEDURE TIME OUT Procedure Verify: Correct Patient Identity; Correct Side and Site are Marked; Accurate Procedure Co nsent Form; Agreement on Procedure to be Done Datetime: 09/25/2017 21:16 ANESTHESIA Anesthesia Plans: Epidural Datetime: 09/25/2017 20:57 Medication Comments: Labetolol 100mg given Datetime: 09/25/2017 20:50 PATIENT CARE IV/Blood Work: IV Bolus Started Datetime: 09/25/2017 20:48 Vaginal Bleeding: Normal Show Cervix, Consistency: Soft Cervix, Position: Midposition Datetime: 09/25/2017 20:05 Membrane Comments: Cervix on right Datetime: 09/25/2017 18:58 FHR Baseline Changes: No Baseline Change Pain Relief Measures: Pain Medication Given Provider Reviewed Strip: Yes Notification Reason: Status Update Datetime: 09/25/2017 18:42 MEDICATIONS Analgesics/Sedatives: Fentanyl (mcg) @ 50 Datetime: 09/25/2017 17:15 Lie 'A': Longitudinal MATERNAL ASSESSMENT Level of Consciousness: Fully Conscious Headache: Denies Breath Sounds, Left: Clear and Equal Breath Sounds, Right: Clear and Equal Nausea/Vomiting: Present RUQ Epigastric Pain: Denies Antibiotics: Start Antibiotics; Penicillin IV (Units) @ 5 million Comfort Measures: Breathing/Relaxation; Hot Shower/Tub/Spa Strip Reviewed by: DR Velazquez Datetime: 09/25/2017 16:00 DTR's/Clonus: DTRs 1+ Datetime: 09/25/2017 14:00 ASSESSMENT B Accelerations: 15X15 Hygiene: Oral Care Datetime: 09/25/2017 10:45 Cervical Ripening Agents: Cytotec @ 50 mcg BC TEACHING Instructional Method: Verbal Plan of Care: Plan of Care Discussed; Vaginal Delivery; Induction Labor/Induction: Labor Stages; Cervical Ripening; Augmentation; Induction Pain Management: IV Narcotics Medications: Antibiotics Teaching Comments: induction medications explained and reviewed with pt ahd . They both augustin balize understanding of same. Datetime: 09/25/2017 10:11 Position 'A': Left Occipital Anterior Datetime: 09/25/2017 07:59 Related: Common Discomforts of Datetime: 09/25/2017 07:00 Actions for Decelerations: Side to Side Datetime: 09/25/2017 05:30 Stage of : Labor
== END 2017-09-28 13:00 | disposition home or self-care (01) | DRG 774 ==
LOC: FBP 18:13 → OBSVTOIN 09-25 18:36
PROVIDERS: ADMIT Obstetrics & Gynecology; ATTEND Obstetrics & Gynecology
PROC: 10E0XZZ Delivery of Products of Conception, External Approach (ICD-10-PCS; principal; 2017-09-26)
PROC: 0KQM0ZZ Repair Perineum Muscle, Open Approach (ICD-10-PCS; 2017-09-26)
DX: O13.4 Gestational [pregnancy-induced] hypertension without significant proteinuria, complicating childbirth (principal); O98.32 Other infections with a predominantly sexual mode of transmission complicating childbirth; Z3A.36 36 weeks gestation of pregnancy; Z37.0 Single live birth; O99.824 Streptococcus B carrier state complicating childbirth; O70.1 Second degree perineal laceration during delivery; O69.81X0 Labor and delivery complicated by cord around neck, without compression, not applicable or unspecified; O99.52 Diseases of the respiratory system complicating childbirth; J45.909 Unspecified asthma, uncomplicated; A63.0 Anogenital (venereal) warts; O76 Abnormality in fetal heart rate and rhythm complicating labor and delivery
CPT/HCPCS: 36415; 59200; 81001; 81003; 82565; 83615; 84450; 84550; 85025; 86850; 86900; 86901; 87086

== ENCOUNTER 2018-08-13 15:44 | Outpatient (CLI) | payer OTHER | END 2018-08-13 23:59 | LOC: LAB.R 15:44 | PROVIDERS: ATTEND Registered Nurse | DX: Z11.3 Encounter for screening for infections with a predominantly sexual mode of transmission (principal) | CPT/HCPCS: 87491; 87591 ==

== ENCOUNTER 2019-05-07 12:21 | Emergency (ER) | payer BC, OTHER ==
[2019-05-07 12:26] VITALS: BP 128/71
--- NOTE | 2019-05-07 12:52 | ED Physician Documentation ---
PD HPI URI - Stated complaint Stated Complaint: LT EAR PX - Chief complaint Chief Complaint: Heent - History obtained from History obtained from: Patient - History of Present Illness Timing - onset: Other (Previously healthy 23-year-old woman has been having problems with conjunctivitis that is already been treating and improving for the last 2 days but starting yesterday she is had pain in the area of the parotids and lymph nodes in the neck rating up to the ears and down the neck anteriorly. There is no associated sore throat, fatigue, body aches, or fevers. No possibility of . No rash.) Review of Systems Constitutional: denies: Fever, Chills, Myalgias, Fatigue Ears: reports: Ear pain Nose: denies: Rhinorrhea / runny nose, Congestion Throat: denies: Sore throat PD PAST MEDICAL HISTORY - Past Medical History Past Medical History: No - Past Surgical History Past Surgical History: No - Present Medications Home Medications: Ambulatory Orders Medication Instructions Recorded Confirmed Amox/Clav 875/125 [Augmentin] 1 each PO Q12H #20 tablet 05/07/19 - Allergies Allergies/Adverse Reactions: Allergies Allergy/AdvReac Type Severity Reaction Status Date / Time blueberry Allergy Rash Verified 05/07/19 12:26 - Social History Does the pt smoke?: No Smoking Status: Never smoker PD ED PE NORMAL - Vitals Vital signs reviewed: Yes - General General: Alert and oriented X 3, No acute distress - HEENT HEENT: Other (Moderate bilateral conjunctivitis, left worse than right. She has tender lymphadenopathy of the anterior neck especially on the left. There is a little swelling over the parotid but that is not tender. She does have some clicking of the TMJs bilaterally but that is not painful or tender. Her TMs and oropharynx are normal. Her ear canals are normal. No posterior cervical adenopathy.) - Neck Neck: Supple, no meningeal sign, No bony TTP - Neuro Neuro: Alert and oriented X 3, Normal speech Results - Vitals Vitals: Vital Signs - 24 hr 05/07/19 12:23 Temperature 36.6 C Heart Rate 55 L Respiratory 18 Rate Blood Pressure 128/71 O2 Saturation 98 Oxygen O2 Source Room air Departure - Departure Disposition: 01 Home, Self Care Clinical Impression: Lymphadenitis Condition: Good Record reviewed to determine appropriate education?: Yes Instructions: ED Lymphangitis Prescriptions: Amox/Clav 875/125 [Augmentin] 1 each PO Q12H #20 tablet Comments: I suspect she will improve over the next couple of days on antibiotics. Return if worsening or if new symptoms develop. Follow-up with your doctor regardless in about a week.
== END 2019-05-07 12:55 | disposition home or self-care (01) ==
LOC: ED 12:21
DX: I88.9 Nonspecific lymphadenitis, unspecified (principal); H10.9 Unspecified conjunctivitis
CPT/HCPCS: 99282; 99283

== ENCOUNTER 2021-10-30 00:32 | Emergency (ER) | payer OTHER ==
[2021-10-30 01:24] VITALS: BP 125/99
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
[2021-10-30] MEDS ORDERED: LIDOCAINE 1% 2 ML VIAL SUBQ STA (02:54)
[2021-10-30] MEDS ORDERED: LIDOCAINE-MPF 1% 5 ML VIAL SUBQ STA (03:10)
[2021-10-30] MEDS ORDERED: BACITRACIN ZINC OINT 1 PACKET TOP STA (04:43)
[2021-10-30] MEDS ORDERED: [UNRECOGNIZED DRUG - OTHER] IM ONE (04:45)
[2021-10-30] MEDS ORDERED: TETANUS IM ONE (04:45)
== END 2021-10-30 05:02 | disposition home or self-care (01) ==
LOC: ED 00:32
DX: S01.81XA Laceration without foreign body of other part of head, initial encounter (principal); W26.8XXA Contact with other sharp object(s), not elsewhere classified, initial encounter; Z23 Encounter for immunization
CPT/HCPCS: 12011; 90471; 99283; A9270; 90700

== ENCOUNTER 2023-02-09 14:28 | Outpatient (CLI) | payer OTHER ==
[2023-02-09 14:53] LABS: HCT - HEMATOCRIT 39.3 % (37.0-47.0); HGB - HEMOGLOBIN 13.6 g/dL (12.0-16.0); MEAN CORPUSCULAR HEMOGLOBIN 31.3 pg (27.0-31.0); MEAN CORPUSCULAR HGB CONC 34.6 g/dL (32.0-36.0); MEAN CORPUSCULAR VOLUME 90.6 fL (81.0-99.0); MEAN PLATELET VOLUME 8.4 fL (7.9-10.8); RED BLOOD COUNT 4.34 10^6/uL (4.20-5.40); RED CELL DISTRIBUTION WIDTH 11.7 % (12.0-15.0); WHITE BLOOD COUNT 6.3 x10^3/uL (4.8-10.8)
== END 2023-02-09 14:29 | disposition home or self-care (01) ==
LOC: LAB 14:28
PROVIDERS: ATTEND Nurse Practitioner
DX: N93.8 Other specified abnormal uterine and vaginal bleeding (principal)
CPT/HCPCS: 36415; 82728; 84702; 85027

== ENCOUNTER 2025-02-12 17:58 | Inpatient (IN) ==
[2025-02-12] MEDS ORDERED: lidocaine 1% 20 ML MDV ID PRN (18:13)
[2025-02-12] MEDS ORDERED: NIFEdipine 10 MG CAPSULE PO PRN (18:13)
[2025-02-12] MEDS ORDERED: TRANEXAMIC ACID IN NACL 1,000 MG/100 ML BAG IV PRN (18:13)
[2025-02-12] MEDS ORDERED: OXYTOCIN/SODIUM CHLORIDE 500 ML IV PRN (18:13)
[2025-02-12] MEDS ORDERED: OXYTOCIN 10 UNIT/ML VIAL IM PRN (18:13)
[2025-02-12] MEDS ORDERED: METHYLERGONOVINE 0.2 MG/ML VIAL IM PRN (18:13)
[2025-02-12] MEDS ORDERED: LABETALOL 20 MG/4 ML SYRINGE IVP PRN ×3 (18:13)
[2025-02-12] MEDS ORDERED: SODIUM CHLORIDE FLUSH 0.9% 10 ML SYRINGE IVP PRN (18:13)
[2025-02-12] MEDS ORDERED: miSOPROStoL 200 MCG TABLET BC PRN (18:13)
[2025-02-12] MEDS ORDERED: hydrALAZINE INJ 20 MG/ML VIAL IVP PRN ×2 (18:13)
[2025-02-12] MEDS ORDERED: CARBOPROST TROMETHAMINE 250 MCG/ML VIAL IM PRN (18:13)
--- NOTE | 2025-02-12 18:18 | HISTORY & PHYSICAL EXAMINATION ---
Admit History Smoking Status: Never smoker Other Maternal History Other Maternal History: HPI: This 29yo @ 39+1 weeks by LMP and confirmed by 9+1 week ultrasound. First complicated by gestational hypertension. Her BP in clinic was elevated today (140/84) and she has some significant edema to bilateral lower extremities, hands, and face. Urine PCR 0.2. She was very agreeable to an elective induction of labor tonight. Cervix in clinic was 2/80/-2/medium posterior and very far to maternal left. Correa score: 5. They have secured childcare through the weekend. Reviewed that risks of labor include but are not limited to section, prolonged labor, vacuum extraction, episotomy, hemorrhage, and additional risks exist re: prolonged second stage related to extraction. Reviewed back up OBGYN is available for consultations, emergency interventions and transfer of care if indicted. She has been a patient of [facility] for the duration of her which has remained uncomplicated with the exception of today's elevated BP in clinic, although normal upon admission. ROS: No Headache, visual changes or right upper quadrant abdominal pain. Denies significant N/V. Denies urinary urgency or dysuria. All other symptoms reviewed and were negative except per HPI. In the event of an emergency, accepts the administration of blood products. Recent BP: 139/79 Total maternal weight gain: 48# OB Hx: G1: 09/26/2017: 22 yo with a 36w6d IUP was admitted 09/25/2017 for cervical ripening. Controlled gestational HTN controlled on labetalol 100 mg BID. S/p Beta-methasone at 35 weeks gestation. She received cervidil x 1 and cytotec 50 mcg x 1. Epidural for pain control by Dr. Mckenzie. 09/26/2017 at 37w0d of a viable female infant, "Amy Bliss." Nuchal cord x 2 reduced easily. Placenta delivered spontaneously, intact, 3VC; to pathology. Cord gases obtained. Baby did not want to cry despite stimulation. Good HR, color. Supplemental O2 by mask given. Apgars 5/7/9. Weight 7 lbs 5.1 oz. 2nd degree medial vulvar laceration repaired with 4-0 vicryl. EBL 250 mL. No complications. G2:SAB 2023 G3:Current Medical Hx: No significant Surgical Hx: [place] teeth 2010, no complications Social Hx: Monogamous with male partner. Denies current use of alcohol or tobacco, marijuana or other recreational drugs. Reports that she is safe in current relationship. Family Hx: Denies family history of congenital anomalies, Cystic Fibrosis or chromosomal abnormalities LMP: 05/14/2024 LV by LMP: 02/18/2025 Initial U/S: 07/17/2024 @ 9+1 weeks LV by us 02/18/2025 FINAL LV: 02/18/2025 FOB: Peter (non-) Daughter: Amy sex: It's a GIRL! [place] Allergies: NKDA, blueberries RX Asprin, PNV Pre- Weight: 145 BMI: 27.5 Blood type: O + Rh: Positive Antibody: Negative CBC: PLT 209 HCT 33.0 HGB 11.9 RUB: Immune VZV: Non- Immune HBsAg Neg HepC NR RPR/AB-EIA: NR HIV: NR PAP: colpo 2021; pap 06/2023; due for pap, defer PP GC/CT: 07/17/2024 negative HSV: denies in self and partner Genetic testing: declined Covid: Flu: declines FAS: Placenta: Posterior Cord: 3VC MISSAEL: 15.4 EFW: 373.7g 50gm OGCT: 110 TDAP: 12/02/2024 Breast Pump: 12/02/2024 3rd trimester PLT 190 HCT 33.9 HGB 11.6 3rd trimester RPR NR GBS: 01/23/2025 negative Delivery plan: unmedicated delivery, desires to avoid pitocin as part of induction. Okay with active management of the third stage. MOD: Anticipate Contraception: FAM Physical exam: Normocephalic, atraumatic No increased work of breathing Abdomen gravid, soft, nontender. EFW 3800 FHR baseline 140, moderate variability, + accelerations, no decelerations Irregular contractions, soft resting tone SVE 2/80/-3/posterior/medium , vertex, membranes intact Bilateral LE's no edema Mood is good. Assessment: 29 yo @ 39+1 weeks gestation by 9+1 wk U/S Elective induction of labor FHR 140 Cat I GBS NEG Plan: Admit to [facility] for induction of labor Misoprostol 50mcg q 4 hours Continuous monitoring Jacuzzi PRN. Nitrous oxide PRN. Epidural PRN Maternal Request. Anticipate . Meds/Allgy Home Medications Ambulatory Orders Medication Instructions Recorded Confirmed aspirin 81 mg tablet,delayed 81 mg PO QDAY 08/26/24 02/03/25 release (Adult Aspirin Regimen) vitamins no.159-iron tab PO 08/26/24 02/03/25 fumarate 28 mg-folic acid 800 mcg tablet ( Vitamin) Allergies Allergies Allergy/AdvReac Type Severity Reaction Status Date / Time blueberry Allergy Rash Verified 02/03/25 20:24 [facility] Active Problems All Active Problems (Updated 02/12/25 @ 18:16 by Sola Ríos RIP/MOULD OPERATOR) Encounter for induction of labor (Acute) Supervision of normal in third trimester (Acute) Supervision of normal in second trimester (Acute) Supervision of normal in first trimester (Acute) (Acute) Lymphadenitis (Acute) Normal vaginal delivery (Acute) Hypertension affecting in third trimester (Acute) Surgical History Surgical History (Updated 08/26/24 @ 13:13 by Emmy Salcedo MA) [place] teeth extracted Family History Family History (Updated 08/26/24 @ 13:14 by Emmy Salcedo MA) Father Heart attack Mother Depressed Alcoholism Other CAD (coronary artery disease) Social History Social History Smoking Status: Never smoker Do you dip or chew tobacco?: No Patient requests smoking cessation consult: No Initiate information on smoking cessation: No Relationship: Plan for Labor Plan For Labor I expect patient to be DC'd or transferred within 96 hours.: Yes Conclusion/Plan Lab Results 02/12/25 18:20 02/12/25 18:20
[2025-02-12 18:32] LABS: BASOPHILS % (AUTO) 0.2 %; EOSINOPHILS % (AUTO) 0.2 %; HCT - HEMATOCRIT 33.7 % (37.0-47.0); HGB - HEMOGLOBIN 11.5 g/dL (12.0-16.0); LYMPHOCYTES # (AUTO) 2.2 10^3/uL (1.5-3.5); LYMPHOCYTES % (AUTO) 23.2 %; MEAN CORPUSCULAR HEMOGLOBIN 29.5 pg (27.0-31.0); MEAN CORPUSCULAR HGB CONC 34.1 g/dL (32.0-36.0); MEAN CORPUSCULAR VOLUME 86.4 fL (81.0-99.0); MEAN PLATELET VOLUME 10.2 fL (7.9-10.8); MONOCYTES # (AUTO) 0.6 10^3/uL (0.0-1.0); NEUTROPHILS # (AUTO) 6.6 10^3/uL (1.5-6.6); NEUTROPHILS % (AUTO) 70.2 %; PLT - PLATELET COUNT 205 10^3/uL (130-450); RED CELL DISTRIBUTION WIDTH 12.6 % (12.0-15.0); WHITE BLOOD COUNT 9.4 x10^3/uL (4.8-10.8)
--- OUTSIDE RECORDS SUMMARY | 2025-02-12 18:37 | EXTERNAL MEDICAL SUMMARY RPT | Continuity of Care Document ---
Author Organization [facility] Address [address] [place] [address] [address] [place] [address] Phone Problems date description facility 2024-12-02 19:42 Encounter for immunization id [facility] 2024-12-02 19:44 Encounter for immunization id [facility] 2024-12-03 00:02 Encounter for immunization [facility] 2024-12-04 09:05 Encounter for superv ision of normal , unspecified, third trimester [facility] 2024-12-04 09:07 Encounter for superv ision of normal , unspecified, third trimester [facility] 2024-12-05 00:03 Encounter for superv ision of normal , unspecified, third trimester [facility] 2025-01-23 16:38 Encounter for screen ing for infections with a predominantly sexual mode of transmission [facility] 2025-01-23 16:38 Encounter for superv ision of normal , unspecified, third trimester [facility] 2025-01-23 16:55 Encounter for superv ision of normal , unspecified, third trimester [facility] 2025-01-24 00:04 Encounter for superv ision of normal , unspecified, third trimester [facility] 2025-01-26 10:39 Encounter for superv ision of normal , unspecified, third trimester [facility] 2025-02-12 16:30 Unspecified maternal hypertensi on, third trimester [facility] Results/Labs test date facility value unit notes Result panel 1 HGB - HEMOGLOBIN 2024-12-04 10:17 [facility] 11.6 g /dl (missing) GLUCOSE,1H PP 50GM DOSE 2024-12-04 10:17 [facility] 110 mg/dl Social History date description facility
[2025-02-12 18:58] LABS: ALBUMIN 3.4 g/dL (3.2-5.5); ALBUMIN/GLOBULIN RATIO 1.1 (1.0-2.2); BILIRUBIN,TOTAL 0.5 mg/dL (0.2-1.0); CALCIUM 8.7 mg/dL (8.5-10.3); CREATININE 0.5 mg/dL (0.6-1.3); POTASSIUM 3.5 mmol/L (3.5-4.5); TOTAL PROTEIN 6.5 g/dL (6.4-8.9)
[2025-02-12] MEDS: miSOPROStoL 100 MCG TABLET BC SCH (19:42)
[2025-02-13] MEDS: SODIUM CHLORIDE FLUSH 0.9% 10 ML SYRINGE IVP SCH (07:09)
--- NOTE | 2025-02-13 09:43 | PROVIDER PROGRESS NOTE ---
Labor Progress Note Labor Progress Note Labor Progress Note/Additional Text: S: Breathing through contractions in the tub. She is coping well. Was able to get some rest last night intermittently and is happy with her progress thus far. She is well supported by her partner Peter at the bedside. O: SVE 5/80/-2 and vertex AROM moderate amount of meconium stained amniotic fluid FHR baseline 140s, moderate variability, + accels, intermittent variable decelerations - overall reassuring Contractions palpate moderate every 2-3 minutes with soft resting tone A: 29yo @ 39.2wks gestation Early labor GBS neg FHR Category II - overall reassuring P: Continue expectant management. Repeat SVE in 4 hours or sooner PRN. Nitrous oxide PRN. Jacuzzi PRN. Epidural per maternal request. Notify loft worker pile driving to be present at time of delivery secondary to meconium. Anticipate .
[2025-02-13] MEDS: LACTATED RINGERS 1,000 ML IV PRN ×2 (10:53→15:46)
[2025-02-13] MEDS ORDERED: ROPIVACAINE 0.2% 200 MG/100 ML BAG EP ONE ×2 (10:56→18:06)
[2025-02-13] MEDS: CALCIUM CARBONATE CHEW 500 MG TABLET PO SCH (11:30)
[2025-02-13] MEDS: diphenhydrAMINE INJ 50 MG/ML VIAL IVP ONE (12:02)
--- NOTE | 2025-02-13 12:39 | PHARMACY PROGRESS NOTE ---
Best Possible Medication History Admit Date and Time: 02/12/25 1813 Home Medications Medication Instructions Recorded Confirmed Type RITUAL PRENTAL MULTIVITAMIN 1 cap PO DAILY 02/13/25 02/13/25 History Processed by: Pharmacy Medications reviewed in ED?: No Medication History completed: Yes Patient Interview: Completed Secondary Source(s): Insurance records [facility] Statement: Per [facility] interview with patient and review of [employer] records. As the person ultimately responsible for medication therapy, providers are able to order a medication from an existing home medication list in [facility] via the "Reconcile Routine" prior to Confirmation of that medication by linux support engineer. Such practice is discouraged except when the physician, in their clinical judgment, deems that a medical need exists for a medication without regard to previous use.
[2025-02-13] MEDS: OXYTOCIN/SODIUM CHLORIDE 500 ML IV SCH (15:05)
[2025-02-13] MEDS: ROPIVACAINE 0.2% 200 MG/100 ML BAG EP PRN (18:08)
[2025-02-13] MEDS ORDERED: NALOXONE 0.4 MG/ML VIAL IVP PRN (18:14)
[2025-02-13] MEDS ORDERED: ePHEDrine 50 MG/ML VIAL IVP PRN (18:14)
[2025-02-13] MEDS ORDERED: diphenhydrAMINE INJ 50 MG/ML VIAL IVP PRN (18:14)
[2025-02-13] MEDS ORDERED: NALBUPHINE 10 MG/ML AMP IVP PRN (18:14)
[2025-02-13] MEDS ORDERED: METOCLOPRAMIDE 10 MG/2 ML VIAL IVP PRN (18:14)
--- NOTE | 2025-02-13 18:18 | ANESTHESIA PROCEDURE NOTE ---
Pre-Anesthesia VS, & Labs Diagnosis Surgical Diagnosis:: active labor Procedure Procedure: labor epidural Vitals Vital Signs: Temp Pulse Resp BP Pulse Ox 36.8 C 95 18 120/70 98 02/13/25 11:30 02/13/25 11:34 02/13/25 11:30 02/13/25 11:34 02/13/25 11:30 NPO NPO: Other Is Patient ?: Yes Lab Results Current Lab Results: Laboratory Tests 02/12/25 18:20: WBC 9.4, RBC 3.90 L, Hgb 11.5 L, Hct 33.7 L, MCV 86.4, MCH 29.5, MCHC 34.1, RDW 12.6, Plt Count 205, MPV 10.2, Neut # (Auto) 6.6, Lymph # (Auto) 2.2, Robertson # (Auto) 0.6, Eos # (Auto) 0.0, Baso # (Auto) 0.0, Absolute Nucleated RBC 0.00, Nucleated RBC % 0.0, Sodium 134 L, Potassium 3.5, Chloride 105, Carbon Dioxide 20 L, Anion Gap 9.0, BUN 8, Creatinine 0.5 L, Estimated GFR (MDRD) 144, Glucose 132 H, Calcium 8.7, Total Bilirubin 0.5, AST 17, ALT 8 L, Alkaline Phosphatase 192 H, Total Protein 6.5, Albumin 3.4, Globulin 3.1, Albumin/Globulin Ratio 1.1, Blood Type O POSITIVE, Antibody Screen NEGATIVE 02/12/25 18:20 02/12/25 18:20 Meds/Allgy Home Medications Ambulatory Orders Medication Instructions Recorded Confirmed RITUAL PRENTAL MULTIVITAMIN 1 cap PO DAILY 02/13/25 02/13/25 Allergies Allergies Allergy/AdvReac Type Severity Reaction Status Date / Time blueberry Allergy Rash Verified 02/03/25 20:24 [facility] Active Problems All Active Problems (Updated 02/12/25 @ 18:16 by NAS Teran) Encounter for induction of labor (Acute) Supervision of normal in third trimester (Acute) Supervision of normal in second trimester (Acute) Supervision of normal in first trimester (Acute) (Acute) Lymphadenitis (Acute) Normal vaginal delivery (Acute) Hypertension affecting in third trimester (Acute) Surgical History Surgical History (Updated 08/26/24 @ 13:13 by Emmy Salcedo MA) Shiner teeth extracted Family History Family History (Updated 08/26/24 @ 13:14 by Emmy Salcedo MA) Father Heart attack Mother Depressed Alcoholism Other CAD (coronary artery disease) Social History Social History Smoking Status: Never smoker Do you dip or chew tobacco?: No Patient requests smoking cessation consult: No Initiate information on smoking cessation: No Relationship: Anesthesia Exam (Expanded) Exam General: Alert, Oriented x3, Cooperative and Moderate distress Dental: WNL Mouth Opening: Greater than 4 Fingerbreadths Neck Mobility: Normal Mallampati classification: II Thyromental Distance: greater than 6 cm Respiratory: Lungs clear Cardiovascular: Regular rate Exam Exam Vital Signs: Vital Signs x48h Temp Pulse Resp BP Pulse Ox 02/13/25 11:34 95 120/70 02/13/25 11:30 36.8 C 87 18 122/66 98 02/13/25 11:27 95 129/77 02/13/25 11:21 99 130/80 02/13/25 11:18 100 126/75 02/13/25 11:15 90 140/81 H 02/13/25 11:09 91 113/89 02/13/25 11:06 104 H 132/90 H 02/13/25 11:02 119 H 18 145/84 H 98 Plan Plan Anesthesia Type: General Consent for Procedure(s) Verified and Reviewed: Yes Code Status: Attempt Resuscitation ASA Classification ASA classification: 2-Mild systemic disease Is this case an emergency?: No
[2025-02-13] MEDS: ONDANSETRON 4 MG/2 ML VIAL IVP PRN (18:34)
[2025-02-13] MEDS: LACTATED RINGERS 500 ML IV ONE (19:00)
[2025-02-13] MEDS ORDERED: WITCH HAZEL/GLYCERIN 1 PAD TOP PRN (20:59)
[2025-02-13] MEDS ORDERED: HYDROCORTISONE 1% CREAM 28 GM TUBE TOP PRN (20:59)
[2025-02-13] MEDS ORDERED: SIMETHICONE CHEW 80 MG TABLET PO PRN (20:59)
[2025-02-13] MEDS ORDERED: OXYTOCIN/SODIUM CHLORIDE 500 ML IV PRN (20:59)
[2025-02-13] MEDS ORDERED: ACETAMINOPHEN 500 MG TABLET PO PRN (20:59)
[2025-02-13] MEDS ORDERED: IBUPROFEN 800 MG TABLET PO PRN (20:59)
--- NOTE | 2025-02-13 21:07 | DELIVERY NOTE ---
Delivery Note Delivery Outcome Delivery Date: 02/13/25 Delivery Time: 19:32 Delivery Comments (Free Text/Narrative) Delivery Comments (Free Text/Narrative): Labor: This 29 year old @ 39.2wks gestation by LMP presented to [facility] for elective induction of labor. Cervix was 2/80/-2 and vertex with intact membranes. She received 3 doses of 50mcg BC misoprostol for effective pre- induction cervical ripening. FHR demonstrated Category I pattern with intermittent periods of Category II however overall remained reassuring throughout labor. AROM occurred on 02/13/2025 @ 0917 and was noted to be a moderate amount of meconium stained amniotic fluid. Normal labor course. Epidural placed per maternal request. Pitocin was initiated for augmentation of labor with a maximum infusion rate of 9mU/min. She progressed to c/c/0 at 1825. : Normal SVB of viable female infant named Roberta on 02/13/2025 @ 1932. No nuchal cord noted. The was placed on maternal abdomen, stimulated, dried, and placed skin to skin. 's were 7/9 at 1 and 5 min respectively. Pitocin administered via IV for hemostasis. The umbilical cord was allowed to stop pulsating at which time it was doubly clamped by CNM and cut by FOB. Cord blood was obtained. 3VC. Fundal massage and gentle cord traction applied for active management of the third stage. Placenta delivered spontaneously and intact at 1945. EBL 250mL. Fourth stage: Uterine fundus firm and there is no excessive bleeding. The perineum, vagina, and cervix were inspected and found to be intact. initiated. Family bonding well. Both mother and baby were left in stable condition.
[2025-02-14] MEDS: DOCUSATE SODIUM 100 MG CAPSULE PO SCH (08:44)
--- NOTE | 2025-02-14 10:19 | PROVIDER PROGRESS NOTE ---
Subjective Subjective Subjective: S: Bonding well with baby. without difficulty. Bleeding decreased and is light. Pain is well controlled with oral medications. She is urinating without difficulty. Has not yet had BM. is supportive at the bedside. O: Heart RRR w/o M/G/R, lungs CTAB, abdomen soft and nontender with fundus firm at U, perineum intact, light lochia rubra, bilateral LE's 1+ edema A: 29yo -->P2 PPD#1 s/p TSVD viable female infant Normal recovery P: Continue routine care and medications. Evaluate for discharge home tomorrow Current Medications Current Medications Current Medications: Current Medications Generic Name Dose Route Start Last Admin Trade Name Freq PRN Reason Stop Dose Admin Acetaminophen 1,000 mg 02/13/25 20:59 Acetaminophen 500 Mg Tablet PO Q8HR PRN Mild Pain or Fever>38C(100.4F) Carboprost Tromethamine 250 mcg 02/12/25 18:13 Carboprost Tromethamine 250 Mcg/Ml Vial IM 02/17/25 18:13 Q15M PRN Step 4: Hemorrhage protocol Docusate Sodium 100 mg 02/13/25 21:00 02/14/25 08:52 Docusate Sodium 100 Mg Capsule PO 100 mg BID MARTIN Administration Hydrocortisone 1 applic 02/13/25 20:59 Hydrocortisone 1% Cream 28 Gm Tube TOP QID PRN PERINEAL REPAIR Ibuprofen 800 mg 02/13/25 20:59 Ibuprofen 800 Mg Tablet PO Q8HR PRN Moderate Pain (Level 4-6) Methylergonovine Maleate 0.2 mg 02/12/25 18:13 Methylergonovine 0.2 Mg/Ml Vial IM 02/17/25 18:13 .ONCE PRN Step 2: Hemorrhage protocol Misoprostol 800 mcg 02/12/25 18:13 Misoprostol 200 Mcg Tablet BC 02/17/25 18:13 .ONCE PRN Step 3: Hemorrhage protocol Naloxone HCl 0.1 mg 02/13/25 18:14 Naloxone 0.4 Mg/Ml Vial IVP Q2M PRN RR<8 Nifedipine 10 - 20 mg 02/12/25 18:13 Nifedipine 10 Mg Capsule PO Q20M PRN SBP >160 or DBP >110 Protocol Oxytocin 10 unit 02/12/25 18:13 Oxytocin 10 Unit/Ml Vial IM 02/17/25 18:13 .ONCE PRN Step one: If no IV access Simethicone 80 mg 02/13/25 20:59 Simethicone Chew 80 Mg Tablet PO TID PRN Gas Witch Sarah/Glycerin 1 pad 02/13/25 20:59 Witch Sarah/Glycerin 1 Pad TOP PRN PRN PERINEAL REPAIR Objective Vital Signs/Intake & Output Vital Signs: Vital Signs x48h Temp Pulse Resp BP Pulse Ox 02/14/25 08:33 98.6 F 80 18 128/66 99 02/14/25 05:03 97.9 F 82 15 126/74 98 Intake & Output: Intake & Output 02/11/25 02/12/25 02/13/25 02/14/25 23:59 23:59 23:59 23:59 Intake Total 1500 / 1500 Output Total 800 / 800 800 / 800 Balance 700 / 700 -800 / -800 Weight (kg) 206 lb Lab Results 02/12/25 18:20 02/12/25 18:20
[2025-02-15 02:12] VITALS: TEMP 98.1
[2025-02-15 06:07] VITALS: O2SAT 98
--- NOTE | 2025-02-15 06:10 | Discharge Summary ---
Discharge Summary Admit Date: 02/12/25 Discharge Date: 02/15/25 HPI History of Present Illness: Diagnosis on admission: 29 yo @ 39+1 weeks gestation by 9+1 wk U/S Elective induction of labor FHR 140 Cat I GBS NEG Diagnosis on Discharge 29 yo s/p 02/13/2025 Intact perineum Breastfeeing Physical exam: Normocephalic, atraumatic No increased work of breathing Normal uterine involution, FF below umbilicus scant rubra bleeding minimal perineal discomfort. Bilateral LE's 2+ edema left foot/ankle, 1+ edema right foot/ankle Mood is good. Brief History: @ 39.2wks gestation by LMP presented to [facility] for elective induction of labor. Cervix was 2/80/-2 and vertex with intact membranes. She received 3 doses of 50mcg BC misoprostol for effective pre- induction cervical ripening. FHR demonstrated Category I pattern with intermittent periods of Category II however overall remained reassuring throughout labor. AROM occurred on 02/13/2025 @ 0917 and was noted to be a moderate amount of meconium stained amniotic fluid. Normal labor course. Epidural placed per maternal request. Pitocin was initiated for augmentation of labor with a maximum infusion rate of 9mU/min. She progressed to c/c/0 at 1825.: Normal SVB of viable female named Roberta on 02/13/2025 @ 1932. No nuchal cord noted. The was placed on maternal abdomen, stimulated, dried, and placed skin to skin. 's were 7/9 at 1 and 5 min respectively. Pitocin administered via IV for hemostasis. The umbilical cord was allowed to stop pulsating at which time it was doubly clamped by CNM and cut by FOB. Cord blood was obtained. 3VC. Fundal massage and gentle cord traction applied for active management of the third stage. Placenta delivered spontaneously and intact at 1945. EBL 250mL.Fourth stage: Uterine fundus firm and there is no excessive bleeding. The perineum, vagina, and cervix were inspected and found to be intact. initiated. Family bonding well. Both mother and baby were left in stable condition. weight 3849g. She has been doing well in her course. She is ambulating and tolerating a regular diet. She is urinating without difficulty and her lochia is normal. Her pain is well controlled without narcotic management. last BP 104/66. going well. She will be discharged to home today on day #2 and encouraged IBU, tylenol and stool softeners PRN. She intends to follow up with [facility] in 1 week for telehealth. This has been scheduled for 02/23/2025 @ 0830 with myself. She has been given precautions to call if she has any new or worsening sx such as fevers, chills, abdominal pain, increasing bleeding, or foul smelling vaginal lochia. preeclamptic precautions reviewed as well. VZV: non-immune, vaccine given. Rubella: immune RH: O+ ALLERGIES Allergies Allergy/AdvReac Type Severity Reaction Status Date / Time blueberry Allergy Rash Verified 02/03/25 20:24 MEDICATIONS Ambulatory Orders Medication Instructions Recorded Confirmed RITUAL PRENTAL MULTIVITAMIN 1 cap PO DAILY 02/13/25 02/13/25 PHYSICAL EXAM AT DISCHARGE Vital Signs: Vital Signs x48h Temp Pulse Resp BP Pulse Ox 02/15/25 06:06 36.7 C 71 16 104/66 98 02/15/25 02:11 36.7 C 80 16 127/76 97 LABS 02/12/25 18:20 02/12/25 18:20 Discharge Plan Discharge Patient Disposition: INTERMEDIATE, Self Care Medically Cleared Date:: 02/15/25 Prescriptions: Continued RITUAL PRENTAL MULTIVITAMIN capsule 1 cap PO DAILY Patient Comments: VIT D 50MCG, VIT E 7MG, FOLATE 1000MCG, VIT B12 8MCG, BIOTIN 150MCG, CHOLINE 55MG, IRON 18MG, IODINE 150MCG, MAGNESIUM 32MG, OMEGA 3 DHA FATTY ACIDS 350MG, FINN 0.7MG, VITAMIN K2 90MCG Print Language: Trinidadian Patient Instructions: Breastfeed Holds, Breastmilk Expressing, Self Care
[2025-02-15] MEDS: VARICELLA VACCINE LIVE/PF 1,350 UNIT/0.5 ML VIAL SUBQ ONE (09:38)
[2025-02-15 09:56] VITALS: BP 125/64
--- NOTE | 2025-02-15 12:05 | Labor Flowsheet ---
Labor Flowsheet Datetime Report Generated by CPN: 02/15/2025 12:05 Datetime: 02/15/2025 09:23 VITAL SIGNS NBP Sys/Inga/Mean (mmHg): 125 : 64 : 78 Pulse: 77 Datetime: 02/14/2025 04:59 SpO2 (%): 98 Datetime: 02/13/2025 21:45 Respirations: 16 Temperature (C): 36.8 Temperature Route: Oral PAIN Pain Scale: 0 Datetime: 02/13/2025 21:00 MATERNAL ASSESSMENT Level of Consciousness: Alert Headache: Denies Breath Sounds, Left: Clear and Equal Nausea/Vomiting: Denies Datetime: 02/13/2025 19:45 Stage of : Recovery Datetime: 02/13/2025 19:44 LaborFlag: Labor Datetime: 02/13/2025 19:31 UTERINE ACTIVITY Monitor Mode: External Frequency (min): 2-2.5 Quality: Strong Duration (sec): 60 Pattern: Normal: <= 5 Contractions in 10 Minutes Resting Tone (Palpate): Relaxed ASSESSMENT A Monitor Mode: Telemetry FHR Baseline Rate : 175 FHR Baseline Changes: Tachycardia Variability: Moderate 6-25 bpm Decelerations: Variable Datetime: 02/13/2025 19:00 Accelerations: 15X15 Datetime: 02/13/2025 18:45 Actions for Decelerations: Sterile Vaginal Exam; Provider Notified Comments: provider remains at bedside Datetime: 02/13/2025 18:35 Patient Care Comments: pt set up for delivery with feet in foot rests Datetime: 02/13/2025 18:25 VAGINAL EXAM Dilatation (cm): 10.0 Effacement (%): 100 Station: 1 Exam by: A.Tristan,CNM Datetime: 02/13/2025 18:21 Patient Position/Activity: Left Lateral Datetime: 02/13/2025 18:08 Anesthesia Comments: epiural bag changed Datetime: 02/13/2025 17:25 Contraction Comments: pushing Datetime: 02/13/2025 17:17 COMMUNICATION Communication: RN at Bedside; RN Reviewed Strip; Provider at Bedside Datetime: 02/13/2025 17:12 Monitor Interventions for FHR: Ultrasound Adjusted Datetime: 02/13/2025 16:22 Monitor Interventions for UA: [place] Adjusted Datetime: 02/13/2025 16:13 Vaginal Bleeding: None Cervix, Consistency: Soft Cervix, Position: Midposition Vaginal Exam Comments: no change Datetime: 02/13/2025 15:40 Pain Coping: Sleeping Datetime: 02/13/2025 14:45 Pain Presence: None/Denies Datetime: 02/13/2025 14:15 Oxygen Method: Room Air Datetime: 02/13/2025 13:31 Provider Reviewed Strip: Yes Strip Reviewed by: Rhoda/LAZARO Johnson Provider Notified (Name): MELIDA Madrigal Notification Reason: Status Update; Status; Labor Status; Uterine Activity Communication Comments: reported variables and lates; IV bolus started Datetime: 02/13/2025 13:30 PATIENT CARE IV/Blood Work: IV Bolus Started; IV Bolus Given ml @ 999 Datetime: 02/13/2025 12:05 I/O Interventions: Yi Cath Inserted Datetime: 02/13/2025 11:30 Category: Category I Datetime: 02/13/2025 11:13 Epidural Positioning: Side Lying Datetime: 02/13/2025 11:11 Epidural Procedure: Completed Datetime: 02/13/2025 11:06 ANESTHESIA Anesthesia Plans: Epidural Epidural Procedure Other: Single Dose Datetime: 02/13/2025 10:59 PROCEDURE TIME OUT Procedure Verify: Correct Patient Identity; Correct Side and Site are Marked; Accurate Procedure Co nsent Form; Agreement on Procedure to be Done; Correct Patient Position; Relevant Images and Results are Properly Labeled and Displayed; Addressed Need to Administer Antibiotics or Fluids for Irrigation ; Safety Precautions Based on Patient History or Medication Use Datetime: 02/13/2025 09:29 Membranes Ruptured Date/Time: 02/13/2025 09:17 MEDICATIONS Cervical Ripening Agents: Cytotec @ Datetime: 02/13/2025 09:16 Membrane Status: Ruptured Membranes Rupture Method: Artificial Amniotic Fluid Color: Particulate Meconium Amniotic Fluid Amount: Moderate Datetime: 02/13/2025 08:32 Hygiene: Complete Bath
== END 2025-02-15 12:04 | disposition home or self-care (01) | DRG 807 ==
LOC: WFO 17:58 → FBP 17:59
PROVIDERS: ADMIT Nurse Practitioner; ATTEND Nurse Practitioner
DX: Z3A.39 39 weeks gestation of pregnancy; Z87.59 Personal history of other complications of pregnancy, childbirth and the puerperium; O75.89 Other specified complications of labor and delivery; Z23 Encounter for immunization; O77.0 Labor and delivery complicated by meconium in amniotic fluid; R60.0 Localized edema; Z37.0 Single live birth; R03.0 Elevated blood-pressure reading, without diagnosis of hypertension